=== PATIENT | male | born 1950 | race Caucasian/White ===

== ENCOUNTER 2017-06-26 12:34 | Emergency (ER) | payer OTHER ==
[~2017-06-26] VITALS: Ht 182.9 cm; Wt 158.8 kg
[~2017-06-26 12:34] MED LIST: MOBIC15 MG PO; NORCO 7.5-3251 EACH PO; STRATTERA100 MG; ZOLOFT
[2017-06-26] MEDS ORDERED: BYSTOLIC 5 MG5 M1 PO (13:00)
[2017-06-26] MEDS ORDERED: HYDROCHLOROTHIA25 M2 PO (13:00)
[2017-06-26] MEDS ORDERED: CYMBALTA30 MG PO (13:00)
[2017-06-26] MEDS ORDERED: ROPINIROLE HCL2 MG PO (13:01)
[2017-06-26] MEDS ORDERED: XANAX1 MG PO (13:01)
[2017-06-26] MEDS ORDERED: PRESERVISION A1 EAC2 PO (13:03)
[2017-06-26] MEDS ORDERED: ALLERGY RELIEF10 M1 PO (13:03)
[2017-06-26 13:08] LABS: ABSOLUTE BASOPHILS 0.1 thou/uL (0.0-0.2); ABSOLUTE EOSINOPHILS 0.2 thou/uL (0.0-0.7); ABSOLUTE LYMPHOCYTES 1.2 thou/uL (0.8-5.3); ABSOLUTE MONOCYTES 0.7 thou/uL (0.0-1.2); ABSOLUTE NEUTROPHILS 4.1 thou/uL (1.6-8.1); BASOPHILS 0.8 %; EOSINOPHILS 3.4 %; HEMATOCRIT 44.7 % (42.0-52.0); HEMOGLOBIN 15.4 gm/dL (14.0-18.0); LYMPHOCYTES 19.5 %; MCH 31.9 pg (26.0-34.0); MCHC 34.5 g/dL (28.0-37.0); MCV 92.5 fL (80.0-100.0); MONOCYTES 11.2 %; MPV 7.3 fl. (7.2-11.1); NUCLEATED RBCS 0 /100WBC; PLATELET COUNT* 193 thou/uL (150-400); POLYS 65.1 %; RBC 4.84 mil/uL (4.50-6.00); RDW-CV 13.6 % (10.5-14.5); WBC 6.3 thou/uL (4.0-11.0)
[2017-06-26 13:12] LABS: ANION GAP 4 mmol/L (7-16); BUN 27 mg/dL (7-18); CALCIUM 8.8 mg/dL (8.5-10.1); CHLORIDE 106 mmol/L (98-107); CO2 32 mmol/L (21-32); GLUCOSE 99 mg/dL (70-99); POTASSIUM 4.8 mmol/L (3.5-5.1); SODIUM 142 mmol/L (136-145)
[2017-06-26 13:15] LABS: APTT 29.2 Seconds (25.0-31.3); INR 1.1; PROTIME 10.5 Seconds (9.20-11.50)
[2017-06-26 13:31] LABS: ALBUMIN 3.7 g/dL (3.4-5.0); ALKALINE PHOSPHATASE 99 U/L (46-116); CK-MB MASS 1.7 ng/mL (<0.5-3.6); LIPASE 88 U/L (73-393); MAGNESIUM 2.1 mg/dL (1.8-2.4); NT-PRO BRAIN NAT PEPTIDE 57 pg/mL (<300); SGOT 19 U/L (15-37); SGPT 38 U/L (30-65); TOTAL BILIRUBIN 0.4 mg/dL (<0.1-1.0); TOTAL PROTEIN 7.3 g/dL (6.4-8.2); TROPONIN-I LEVEL <0.06 ng/mL (<0.06)
[2017-06-26] MEDS ORDERED: NORCO 5-325 TA1 EACH PO (15:17)
[2017-06-26 15:29] VITALS: BP 163/89
--- NOTE | 2017-06-27 14:56 | EKG ---
[place] [address] ELECTROCARDIOGRAM REPORT Name: DANETESFAYE Room: 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 METCALF : 1950 Requested By: Tacho Marques Order Number: [id number] MD: Bebeto Figueroa Measurements Intervals [place] Rate: 55 P: -21 AL: 227 QRS: -24 QRSD: 165 T: -11 QT: 444 QTc: 425 Interpretive Statements Sinus rhythm Prolonged AL interval Right bundle branch block Left ventricular hypertrophy Compared to ECG 03/11/2010 08:07:10 First degree AV block now present Myocardial infarct finding no longer present Electronically Signed On 06-27-2017 14:56:17 CDT by Bebeto Figueroa [email or web address] <ELECTRONICALLY SIGNED> By: Bebeto Figueroa MD, FACC 06/27/17 1456 1500 1500 Bebeto Figueroa MD, FAC /EPI
--- NOTE | 2017-06-27 14:56 | EKG ---
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: GERTRUDE : 1950 Requested By: Tacho Marques Order Number: [id number] MD: Bebeto Figueroa Measurements Intervals [place] Rate: 60 P: -48 WI: 209 QRS: -22 QRSD: 164 T: -6 QT: 441 QTc: 441 Interpretive Statements Sinus or ectopic atrial rhythm Right bundle branch block Left ventricular hypertrophy Compared to ECG 03/11/2010 08:07:10 Ectopic atrial rhythm now present Sinus rhythm no longer present Myocardial infarct finding no longer present Electronically Signed On 06-27-2017 14:56:08 CDT by Bebeto Figueroa [email or web address] <ELECTRONICALLY SIGNED> By: Bebeto Figueroa MD, FACC 06/27/17 1456 1238 1238 Bebeto Figueroa MD, FAC /EPI
== END 2017-06-26 15:30 | disposition home or self-care (01) ==
LOC: M.ERS 12:34
PROVIDERS: Family Medicine
DX: R07.9 Chest pain, unspecified (principal); I10 Essential (primary) hypertension; Z90.79 Acquired absence of other genital organ(s); Z91.041 Radiographic dye allergy status; Z91.040 Latex allergy status

== ENCOUNTER 2017-07-02 17:47 | Emergency (ER) | payer OTHER ==
[~2017-07-02] VITALS: Ht 182.9 cm; Wt 163.3 kg
[~2017-07-02 17:47] MED LIST changes: +ALLERGY RELIEF10 M1 PO; +BYSTOLIC 5 MG5 M1 PO; +CYMBALTA30 MG PO; +HYDROCHLOROTHIA25 M2 PO; +NORCO 5-325 TA1 EACH PO; +PRESERVISION A1 EAC2 PO; +ROPINIROLE HCL2 MG PO; +XANAX1 MG PO
[2017-07-02 19:25] LABS: ABSOLUTE EOSINOPHILS 0.2 thou/uL (0.0-0.7); ABSOLUTE LYMPHOCYTES 1.5 thou/uL (0.8-5.3); ABSOLUTE MONOCYTES 0.9 thou/uL (0.0-1.2); ABSOLUTE NEUTROPHILS 6.8 thou/uL (1.6-8.1); BASOPHILS 0.5 %; EOSINOPHILS 1.6 %; HEMATOCRIT 46.2 % (42.0-52.0); HEMOGLOBIN 15.7 gm/dL (14.0-18.0); LYMPHOCYTES 15.6 %; MCH 31.3 pg (26.0-34.0); MCV 91.9 fL (80.0-100.0); MONOCYTES 9.3 %; MPV 7.4 fl. (7.2-11.1); NUCLEATED RBCS 0 /100WBC; PLATELET COUNT* 205 thou/uL (150-400); RBC 5.03 mil/uL (4.50-6.00); RDW-CV 13.5 % (10.5-14.5); WBC 9.4 thou/uL (4.0-11.0)
[2017-07-02 19:36] LABS: ANION GAP 7 mmol/L (7-16); BUN 17 mg/dL (7-18); CALCIUM 8.9 mg/dL (8.5-10.1); CHLORIDE 104 mmol/L (98-107); CO2 32 mmol/L (21-32); GLUCOSE 97 mg/dL (70-99); POTASSIUM 4.6 mmol/L (3.5-5.1); SODIUM 143 mmol/L (136-145)
[2017-07-02 19:43] LABS: ALBUMIN 3.5 g/dL (3.4-5.0); ALKALINE PHOSPHATASE 96 U/L (46-116); LIPASE 89 U/L (73-393); SGOT 24 U/L (15-37); SGPT 37 U/L (30-65); TOTAL BILIRUBIN 0.3 mg/dL (<0.1-1.0); TOTAL PROTEIN 7.3 g/dL (6.4-8.2); TROPONIN-I LEVEL <0.06 ng/mL (<0.06)
[2017-07-02 20:17] VITALS: BP 170/78
--- NOTE | 2017-07-03 12:25 | EKG ---
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 Baseline wander in lead(s) V5 Compared to ECG 06/26/2017 15:00:00 ST (T wave) deviation now present Electronically Signed On 07-03-2017 12:24:44 CDT by Efren Porter [email or web address] <ELECTRONICALLY SIGNED> By: Efren Porter MD, FAC 07/03/17 1224 1757 1757 Efren Porter MD, FAC /EPI
== END 2017-07-02 20:18 | disposition home or self-care (01) ==
LOC: M.ERS 17:47
PROVIDERS: Physician Assistant
DX: T50.991A Poisoning by other drugs, medicaments and biological substances, accidental (unintentional), initial encounter (principal); I10 Essential (primary) hypertension; F32.9 Major depressive disorder, single episode, unspecified; F90.9 Attention-deficit hyperactivity disorder, unspecified type; Z90.49 Acquired absence of other specified parts of digestive tract; Z91.040 Latex allergy status; Z91.041 Radiographic dye allergy status; Y92.89 Other specified places as the place of occurrence of the external cause

== ENCOUNTER 2017-08-11 16:50 | Inpatient (IN) | payer OTHER ==
[~2017-08-11] VITALS: Ht 172.7 cm; Wt 167.7 kg
[2017-08-11 16:54] VITALS: BP 162/66
[2017-08-11] MEDS ORDERED: XYZAL5 MG PO (17:01)
[2017-08-11] MEDS ORDERED: ALLERGY RELIEF180 MG PO (17:02)
[2017-08-11] MEDS ORDERED: GERITOL COMPLE1 EAC2 PO (17:02)
[2017-08-11 17:19] LABS: HEMATOCRIT 43.2 % (42.0-52.0); HEMOGLOBIN 14.6 gm/dL (14.0-18.0); MCH 30.9 pg (26.0-34.0); MCHC 33.8 g/dL (28.0-37.0); MCV 91.3 fL (80.0-100.0); MPV 7.4 fl. (7.2-11.1); NUCLEATED RBCS 0 /100WBC; PLATELET COUNT* 198 thou/uL (150-400); RBC 4.73 mil/uL (4.50-6.00); RDW-CV 13.6 % (10.5-14.5); WBC 11.9 thou/uL (4.0-11.0)
[2017-08-11 17:21] LABS: CALCIUM 8.7 mg/dL (8.5-10.1); CREATININE 0.8 mg/dL (0.6-1.3); POTASSIUM 4.2 mmol/L (3.5-5.1)
[2017-08-11 17:26] LABS: ALBUMIN 3.5 g/dL (3.4-5.0); TOTAL BILIRUBIN 0.4 mg/dL (<0.1-1.0); TOTAL PROTEIN 7.6 g/dL (6.4-8.2)
[2017-08-11 17:41] LABS: ABSOLUTE MONOCYTES 0.8 thou/uL (0.0-1.2); ABSOLUTE NEUTROPHILS 10.1 thou/uL (1.6-8.1)
[2017-08-11 17:42] LABS: PLATELET ESTIMATE ADEQUATE
[2017-08-11 17:44] LABS: URINE BILIRUBIN NEGATIVE (Negative); URINE BLOOD NEGATIVE (Negative); URINE CLARITY CLEAR; URINE COLOR YELLOW; URINE GLUCOSE-RANDOM NEGATIVE (Negative); URINE KETONES TRACE (Negative); URINE LEUKOCYTES-REFLEX NEGATIVE (Negative); URINE NITRITE-REFLEX NEGATIVE (Negative); URINE PROTEIN NEGATIVE (Negative); URINE SPECIFIC GRAVITY 1.015 (1.005-1.030); URINE UROBILINOGEN 0.2 E.U./dl (0.2-1.0)
[2017-08-11 19:34] VITALS: BP 183/84
[2017-08-11 20:00] VITALS: BP 186/77
[2017-08-12 03:48] LABS: HEMATOCRIT 43.3 % (42.0-52.0); MCH 31.5 pg (26.0-34.0); MCHC 34.5 g/dL (28.0-37.0); MCV 91.2 fL (80.0-100.0); MPV 7.5 fl. (7.2-11.1); RBC 4.75 mil/uL (4.50-6.00); RDW-CV 13.4 % (10.5-14.5); WBC 8.9 thou/uL (4.0-11.0)
[2017-08-12 04:00] LABS: CALCIUM 8.5 mg/dL (8.5-10.1); POTASSIUM 4.2 mmol/L (3.5-5.1)
[2017-08-12 04:04] LABS: ALBUMIN 3.6 g/dL (3.4-5.0); TOTAL BILIRUBIN 0.3 mg/dL (<0.1-1.0); TOTAL PROTEIN 7.4 g/dL (6.4-8.2)
--- NOTE | 2017-08-12 07:59 | NUR ---
Admit last evening at 1999. He is bedrest, he is having pain in his lower back and numbness and tingling in LE's bilat. He fell yesterday and wasn't able to bear weight he called for help. Neuro consult ordered. Dr Veloz returned call at 2014,he said he had no problem seeing the patient but that they didn't do anything for back problems. I did relay this message to Dr Jaquez and she said she didn't think it was a surgical issue so it is fine for Dr Veloz to see. He does have sleep apnea and uses Cpap so I did apply O2 at 2L n/c. He has had nothing by mouth since midnight for MRI this am.
[2017-08-12 08:56] VITALS: BP 176/96
--- NOTE | 2017-08-12 13:36 | EKG ---
[place] [address] ELECTROCARDIOGRAM REPORT Name: DANETESFAYE Humberto Room: [address] ADM IN M.R.#: [id number] Admission: 08/11/17 Attend Phys: Lou Jaquez MD Discharge: Date of : 48 Report #: [id number] THIS REPORT FOR: //name// [facility] ED Test Date: 2017-08-11 Test Time: 16:49:56 Pat Name: TESFAYE VELA Department: Room: [address] Gender: M Supervisor [employer]: Humberto METCALF : 1950 Requested By: Lorin Baig Order Number: [id number] MD: Robert Naqvi Measurements Intervals [place] Rate: 72 P: -47 [place]: 218 QRS: -24 QRSD: 167 T: -12 QT: 421 QTc: 461 Interpretive Statements Sinus rhythm Ventricular premature complex Borderline prolonged [place] interval Right bundle branch block Compared to ECG 07/02/2017 17:57:26 Ventricular premature complex(es) now present Electronically Signed On 08-12-2017 13:36:35 CDT by Robert Naqvi [email or web address] <ELECTRONICALLY SIGNED> By: Robert Naqvi MD, [facility] 08/12/17 1336 1649 1649 Robert Naqvi MD, [facility] /EPI
[2017-08-12 15:44] VITALS: BP 116/62
--- NOTE | 2017-08-12 18:44 | NUR ---
ASSUMED CARES OF PT AT 0700. PT IN BED, BED IN LOW LOCKED POSITION, CALL BUTTON AND PERSONAL ITEMS IN PT REACH. PT A&O X4, HRRR PER AUSCULTATION, LCTAB, VSS ON RA, OCC. HYPERTENSIVE. BEDREST, PT USES URINAL AND BEDPAN THIS SHIFT. 1-2+ PITTING EDEMA LE BILATERALLY. UP WITH 2-3 ASSIST/WALKER/GAIT BELT. LEFT HAND IV AND LEFT AC IV PATENT TO FLUSH AND MEDS. AFEBRILE, PERRLA. PAIN CONTROL DIFFICULT IN LOWER BACK AND LE BILATERALLY. AT BEDSIDE. CPAP FROM HOME REQUESTED. HOURLY ROUNDING COMPLETED. REPORT TO BE GIVEN TO CORPORATE ASSOCIATE ATTORNEY FOR CONTINUED CARES. HIGH FALL RISK. PT PLEASANT AND COOPERATIVE. WILL CONTINUE TO MONITOR PT FOR REMAINING SHIFT. PULSES WEAK PEDAL AND RADIAL. Q2 TURN ASSIST NEEDED. FALL PRECAUTIONS IN PLACE.
[2017-08-12 20:00] VITALS: BP 160/91
[2017-08-13 02:07] LABS: GLYCOHEMOGLOBIN (HGB A1C) 5.3 % (4.8-5.6)
[2017-08-13 04:11] LABS: HEMATOCRIT 41.7 % (42.0-52.0); HEMOGLOBIN 14.3 gm/dL (14.0-18.0); MCH 31.1 pg (26.0-34.0); MCHC 34.2 g/dL (28.0-37.0); MCV 90.8 fL (80.0-100.0); MPV 7.6 fl. (7.2-11.1); RBC 4.59 mil/uL (4.50-6.00); WBC 19.1 thou/uL (4.0-11.0)
--- NOTE | 2017-08-13 04:30 | NUR ---
PATIENT HAS REMAINED ALERT AND ORIENTED X 4 THROUGHOUT THE SHIFT AND RESTING QUIETLY ON HOURLY ROUNDS. HAS REMAINED IN THE BED TONIGHT. HAS DECLINED TO TURN. CPAP FROM HOME SET-UP IN ROOM AND UTILIZED OVERNIGHT. PAIN CONTROL MUCH IMPROVED WITH USE OF ORAL AND IV MEDICATIONS. NO INCREASES IN NUMBNESS OVERNIGHT. USING URINAL WITH ASSIST OF . VITAL SIGNS STABLE. MEDS PER ORDERS. CONTINUE TO MONITOR.
[2017-08-13 04:34] LABS: ALBUMIN 3.3 g/dL (3.4-5.0); CALCIUM 8.8 mg/dL (8.5-10.1); CREATININE 0.9 mg/dL (0.6-1.3); POTASSIUM 4.3 mmol/L (3.5-5.1); TOTAL BILIRUBIN 0.2 mg/dL (<0.1-1.0); TOTAL PROTEIN 6.9 g/dL (6.4-8.2)
--- NOTE | 2017-08-13 06:21 | NUR ---
PATIENT REPORTING IMPROVED SENSATION IN FEET THIS AM. SLEPT WELL AFTER HS MORPHINE AND DID NOT REQUIRE PAIN MEDICATION UNTIL THIS AM. DENIES DIFFICULTY WITH URINATION.
[2017-08-13 09:40] VITALS: BP 172/73
[2017-08-13 12:39] VITALS: BP 149/54
--- NOTE | 2017-08-13 15:00 | NUR ---
SPOKE WITH PT.AND . 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 NORMALLY HE SITS BEHIND A DESK BUT HE HAS TO DO ROUNDS. LAST WEEK HE AND A FEW OTHERS HAD TO CONTROL AN AREA OF THE RETIREMENT WHICH REQUIRED HIM HOLDING AN INMATE ON THE GROUND. SAID PT.WAS ALSO USING CHAIN SAW AND AX LAST WEEK. HE MENTIONED HE HAD SEEN A CHIROPRACTOR LAST WED. AND SINCE THEN HAD SEVERE PAIN AND TROUBLE WALKING. WAITING FOR THE NEUROLOGIST TO ROUND TODAY TO SEE WHAT THE PLAN WILL BE FOR HIM. IF HE DOESN'T MAKE PROGRESS IN THERAPY AND HAS TO GO TO A SNF, HE WOULD WANT TO GO TO [facility]. IT IS JUST A FEW BLOCKS FROM HIS HOME. ENCOURAGED TO TOUR. PT.DOES NOT NORMALLY USE DME,NO HX OF HOME HEALTH. IS INDEPENDENT NORMALLY. CM WILL FOLLOW .
--- NOTE | 2017-08-13 16:23 | NUR ---
O.T. WILL WAIT FOR CLARIFICATION BEFORE PROCEEDING WITH FURTHER ACTIVITY DUE TO PT. HAVING DECREASED LOWER BODY SENSATION INCLUDING BUTTOCKS AND MRI STATING THAT MYELOMALCIA IS A POSSIBILITY FOR DX.
--- NOTE | 2017-08-13 17:03 | NUR ---
ASSUMED CARES OF PT AT 0700. PT ASLEEP IN BED WITH IN BEDSIDE CHAIR. BED IN LOW LOCKED POSITION. CALL BUTTON AND PERSONAL ITEMS IN PT REACH. PT A&O X4, FRIENDLY, PLEASANT, TALKATIVE, MODEST. HRRR PER AUSCULTATION, LCTAB, VS ON RA, PT OCC. HYPERTENSIVE (172/73). PT USES URINAL AND BEDPAN THIS SHIFT. EDEMA ON LE BILATERALLY +1. SCD'S IN PLACE WHILE IN BED, CALF SLEEVE BILATERALLY. LEFT HAND AND AC IV'S PATENT TO FLUSH AND MEDICATION. AFEBRILE, PERRLA, OCC. BRADYCARDIC HR. NUMBNESS REPORT FROM MID ABD DOWN. PT HAS DIFFICULTY FEELING FEET AND FOOT PLACEMENT, CAN NOT TELL WHERE HIS FEET ARE. MRI OF THORACIC SPINE NOTED MULTIPLE ISSUES, SEE NOTES. NEUROLOGY / CA CONSULTED. HOME CPAP IN ROOM. PAIN DIFFICULT TO CONTROL. PT UP 2-3 ASSIST, CAN NOT STAND UP AND MOVE LEGS HIMSELF. HOURLY ROUNDING CONTINUES. WILL CONTINUE TO MONITOR PT PROGRESS AND STATUS/PAIN.
[2017-08-13 17:14] VITALS: BP 151/56
[2017-08-13 21:10] VITALS: BP 170/78
--- NOTE | 2017-08-13 21:30 | NUR ---
REPORT TO MENTAL HEALTH ORDERLY FOR CONTINUED CARES. PT PAIN PARTIALLY CONTROLLED WITH PO AND IVP PAIN MEDS. IN BED AT SHIFT CHANGE. PT HAD 4 BM SMALL TO LARGE THIS SHIFT. PT REPORTS NUMBNESS MID TORSO DOWN TO FEET. BILATERAL INVOLUNTARY SPASMS IN LE. NEURO/DR. THOMAS CALLED AND SPOKEN WITH REGARDING MRI OF THORACIC SPINE. DR. THOMAS STATED SHE WILL SEE PT TOMORROW. HOURLY ROUNDING COMPLETED THIS SHIFT.
[2017-08-13 23:45] VITALS: BP 181/87
--- NOTE | 2017-08-14 04:36 | NUR ---
PATIENT HAS REMAINED ALERT AND ORIENTED X 4 THROUGHOUT THE SHIFT AND RESTING QUIETLY AT HOURLY ROUNDS. REPORTED AT HS ABLE TO FEEL AND MOVE FEET AND LIFT LEGS SOMEWHAT IMPROVED FROM EARLIER IN THE DAY. NEW ORDER FOR DECADRON PROVIDED ORDERED. MEDICATED FOR PAIN X 2 TO GOOD EFFECT. NEUROLOGY TO SEE AGAIN TODAY AND DISCUSS MRI RESULTS WITH PATIENT. CONTINUE TO MONITOR.
[2017-08-14 04:38] LABS: CALCIUM 8.5 mg/dL (8.5-10.1); POTASSIUM 4.4 mmol/L (3.5-5.1)
[2017-08-14 08:15] VITALS: BP 166/80
--- NOTE | 2017-08-14 09:16 | NUR ---
JACOB received notification of need for pt to transfer to for neurosurgeon and spine specialists as well as EMG. Dr Solorio signed transfer form and will be obtaining acceptance. JACOB called [phone] and spoke with transfer team. JACOB faxed needed information to fax [phone] and called radiology who will upload images to . JACOB spoke with pt about transfer. JACOB completed transfer form for ambulance and will arrange transport after receiving approval, bed assignment, and accepting doctor.
[2017-08-14 09:20] LABS: ABSOLUTE LYMPHOCYTES 0.8 thou/uL (0.8-5.3); ABSOLUTE MONOCYTES 0.3 thou/uL (0.0-1.2); ABSOLUTE NEUTROPHILS 13.3 thou/uL (1.6-8.1); BASOPHILS 0.1 %; HEMATOCRIT 43.6 % (42.0-52.0); HEMOGLOBIN 14.8 gm/dL (14.0-18.0); LYMPHOCYTES 5.7 %; MCH 31.2 pg (26.0-34.0); MCHC 33.9 g/dL (28.0-37.0); MCV 92.1 fL (80.0-100.0); MONOCYTES 2.1 %; MPV 7.3 fl. (7.2-11.1); NUCLEATED RBCS 0 /100WBC; PLATELET COUNT* 238 thou/uL (150-400); POLYS 92.1 %; RBC 4.74 mil/uL (4.50-6.00); RDW-CV 14.1 % (10.5-14.5); WBC 14.4 thou/uL (4.0-11.0)
[2017-08-14 11:24] VITALS: BP 166/80
--- NOTE | 2017-08-14 12:26 | NUR ---
PATIENT LEFT UNIT AT 1210 WITH EMS TO BE TRANSFERRED TO [facility]. ALERT AND ORIENTED X 4. VITAL SIGNS STABLE ON ROOM AIR, HOWEVER BLOOD PRESSURE TENDING ON THE HIGH SIDE. PERRLA. IV PATENT AND SALINE LOCKED. DENIES NAUSEA. PAIN MANAGED WITH PO MEDICATION. HOME MEDICATIONS GIVEN AND TRANSFER PAPERS GIVEN TO EMS. LEFT WITH ALL BELONGINGS VIA AMBULANCE.
[2017-08-14 12:30] VITALS: BP 166/80
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
== END 2017-08-14 12:10 | disposition short-term general hospital (02) | DRG 92 ==
LOC: M.ERS 16:50 → M.ORTHSURG 18:35 → M.TBA-ER 18:35 → M.ORTHSURG 19:37
PROVIDERS: Internal Medicine; Personal Emergency Response Attendant; ADMIT Internal Medicine
DX: G95.89 Other specified diseases of spinal cord (principal); Z68.43 Body mass index [BMI] 50.0-59.9, adult; M43.16 Spondylolisthesis, lumbar region; G95.20 Unspecified cord compression; E66.01 Morbid (severe) obesity due to excess calories; I10 Essential (primary) hypertension; F32.9 Major depressive disorder, single episode, unspecified; F90.9 Attention-deficit hyperactivity disorder, unspecified type; S40.212A Abrasion of left shoulder, initial encounter; S50.312A Abrasion of left elbow, initial encounter; S90.415A Abrasion, left lesser toe(s), initial encounter; W18.39XA Other fall on same level, initial encounter; Z90.49 Acquired absence of other specified parts of digestive tract; Z90.79 Acquired absence of other genital organ(s); Z79.899 Other long term (current) drug therapy; Z91.041 Radiographic dye allergy status; Z91.040 Latex allergy status; Y93.89 Activity, other specified; Y92.002 Bathroom of unspecified non-institutional (private) residence as the place of occurrence of the external cause; Y99.8 Other external cause status